=== PATIENT | female | born 1990 | race Caucasian/White ===

== ENCOUNTER → 2017-07-21 | Outpatient (CLI) | payer OTHER ==
[~2017-07-21] MED LIST: FERROUS SULFAT325 M1 PO; IBUPROFEN400 MG PO; LODINE200 MG PO; MOTRIN 400MG.400 MG PO; PRENATAL PLUS1 TA1 PO
--- NOTE | 2017-07-21 13:33 | RADIOLOGY REPORT PS360 ---
CHEST(2 VIEWS-NOT PORTABLE) HISTORY: History of tuberculosis R/O TB, H/O TB CHILD ORDERING PHYSICIAN: Saman Ford MD PATIENT AGE: 27 years COMPARISON: None available FINDINGS: The cardiomediastinal silhouette and pulmonary vascularity are within normal limits. The lungs are clear without infiltrates, suspicious nodules, or pleural effusions. No acute bony abnormalities. Calcified granulomas noted in the perihilar region on the lateral view. No cavitating lesions evident. IMPRESSION: No evidence of active tuberculosis No acute finding There is a calcified nodule in the perihilar region on the lateral view consistent with old granulomatous disease
== END ==
LOC: RAD 08:20
DX: R76.11 Nonspecific reaction to tuberculin skin test without active tuberculosis (principal)